=== PATIENT | female | born 1995 | race Caucasian/White ===

== ENCOUNTER 2017-05-17 15:21 | Outpatient (CLI) | payer OTHER, SELFPAY ==
[~2017-05-17] VITALS: Ht 160 cm; Wt 76.0 kg
[2017-05-17] MEDS ORDERED: PRENTAB9 PO (15:48)
[2017-05-17] MEDS ORDERED: ACET50TA PO (15:48)
[2017-05-17 15:51] VITALS: BP 106/50
[2017-05-17 17:41] VITALS: BP 107/61
[2017-06-06] MEDS ORDERED: RANI150T PO (12:55)
== END 2017-05-17 18:07 | disposition home or self-care (01) ==
LOC: M LDO 15:21
PROVIDERS: ATTEND Obstetrics & Gynecology
DX: O99.89 Other specified diseases and conditions complicating pregnancy, childbirth and the puerperium (principal); W19.XXXA Unspecified fall, initial encounter; Z3A.34 34 weeks gestation of pregnancy; Z88.5 Allergy status to narcotic agent; X58.XXXA Exposure to other specified factors, initial encounter; Y93.9 Activity, unspecified; Y92.9 Unspecified place or not applicable; Y99.8 Other external cause status; R10.12 Left upper quadrant pain; R10.32 Left lower quadrant pain

== ENCOUNTER 2017-06-15 07:07 | Inpatient (IN) | payer OTHER ==
[~2017-06-15] VITALS: Ht 160 cm; Wt 75.4 kg
[~2017-06-15 07:07] MED LIST: ACET50TA PO; PRENTAB9 PO; RANI150T PO
[2017-06-15] MEDS ORDERED: LR 1,000 ML IV ONE (08:00)
[2017-06-15] MEDS ORDERED: BICITRA 30ML SOLN UDC PO ONE (08:00)
[2017-06-15] MEDS ORDERED: LR 1,000 ML IV SCH ×2 (08:00→12:45)
[2017-06-15 08:22] LABS: MEAN CORPUSCULAR HGB CONC 33.7 g/dl (32.0-36.5); MEAN CORPUSCULAR VOLUME 88.9 fl (80.0-96.0); PLATELET COUNT, AUTOMATED 198 10^3/uL (150-450); RED CELL DISTRIBUTION WIDTH 12.4 % (11.5-14.5); WHITE BLOOD COUNT 7.6 10^3/uL (4.0-10.0)
[2017-06-15 10:18] VITALS: BP 130/76
[2017-06-15] MEDS ORDERED: ePHEDrine SULFATE 25 MG/5 ML(5MG/ML) SYRINGE As Ordered ONE (10:53)
[2017-06-15] MEDS ORDERED: MORPHINE PRES-FREE INJ 10 MG/10 ML VIAL (J2274) As Ordered ONE (10:53)
[2017-06-15] MEDS ORDERED: OXYTOCIN INJ 10 UNITS/ML VIAL (J2590) As Ordered ONE (10:53)
[2017-06-15] MEDS ORDERED: ONDANSETRON 4MG/2ML VIAL (J2405) As Ordered ONE (10:53)
[2017-06-15] MEDS ORDERED: KETOROLAC 60 MG/2 ML VIAL (J1885) As Ordered ONE (11:11)
[2017-06-15] MEDS ORDERED: METOCLOPRAMIDE INJ 10MG/2ML VIAL (J2765) As Ordered ONE (11:15)
[2017-06-15] MEDS ORDERED: dexameTHASONE 4 MG/ML 1ML VIAL (J1100) As Ordered ONE (11:27)
[2017-06-15] MEDS: LR 1,000 ML IV SCH ×2 (12:13→20:13)
[2017-06-15] MEDS ORDERED: MOM 30ML SUSPENSION UDC PO PRN (12:15)
[2017-06-15] MEDS ORDERED: PROMETHAZINE 25 MG TAB PO PRN (12:15)
[2017-06-15] MEDS ORDERED: RHOGAM 300 MCG (1500 IU) INJ (J2790) IM SCH (12:15)
[2017-06-15] MEDS ORDERED: METHYLERGONOVINE MALEATE 0.2 MG TAB PO PRN (12:15)
[2017-06-15] MEDS ORDERED: DOCUSATE SODIUM 100 MG CAP PO PRN (12:15)
[2017-06-15] MEDS ORDERED: PERCOCET 5MG/325MG TAB PO PRN ×2 (12:15→12:45)
[2017-06-15] MEDS ORDERED: MEASLES,MUMPS,RUBELLA VACCINE INJ (MMR-II) (90707) SC SCH (12:15)
[2017-06-15] MEDS ORDERED: ONDANSETRON 4MG/2ML VIAL (J2405) IV PRN ×2 (12:15→12:45)
[2017-06-15] MEDS ORDERED: fentaNYL 100 MCG/2 ML INJECTION (J3010) IV PRN (12:45)
[2017-06-15] MEDS ORDERED: NALBUPHINE HCL 10 MG/ML AMP (J2300) IV PRN (12:45)
[2017-06-15 13:32] VITALS: BP 129/60
[2017-06-15] MEDS: PRENATAL VITAMINS CHEWABLE TABLET PO SCH (14:09)
[2017-06-15 14:10] VITALS: BP 114/66
[2017-06-15 15:16] VITALS: BP 111/57
[2017-06-15] MEDS: KETOROLAC 30 MG/ML VIAL (J1885) IV SCH ×2 (17:17→23:18)
[2017-06-15 18:14] VITALS: BP 112/58
[2017-06-15 22:00] VITALS: BP 108/62
[2017-06-16 02:00] VITALS: BP 105/50
[2017-06-16] MEDS: LR 1,000 ML IV SCH (04:13)
[2017-06-16] MEDS: KETOROLAC 30 MG/ML VIAL (J1885) IV SCH ×2 (05:28→10:40)
[2017-06-16 06:00] VITALS: BP 97/51
[2017-06-16 07:27] LABS: MEAN CORPUSCULAR HGB CONC 33.3 g/dl (32.0-36.5); PLATELET COUNT, AUTOMATED 152 10^3/uL (150-450); RED CELL DISTRIBUTION WIDTH 12.5 % (11.5-14.5); WHITE BLOOD COUNT 13.7 10^3/uL (4.0-10.0)
[2017-06-16] MEDS: PRENATAL VITAMINS CHEWABLE TABLET PO SCH (08:26)
[2017-06-16 10:10] VITALS: BP 99/52
[2017-06-16 14:11] VITALS: BP 127/64
[2017-06-16] MEDS: PERCOCET 5MG/325MG TAB PO PRN (17:48)
[2017-06-16 18:04] VITALS: BP 117/60
[2017-06-16] MEDS: IBUPROFEN 800 MG TAB PO SCH (19:00)
[2017-06-16 22:00] VITALS: BP 119/64
--- NOTE | 2017-06-16 22:40 | RO ---
DATE OF PROCEDURE: 06/15/2017 PREPROCEDURE DIAGNOSIS: 1) Term 2) Previous /desired repeated low transverse section 3) Satisfied parity POSTPROCEDURE DIAGNOSIS: 1) Term 2) Previous /desired repeated low transverse section 3) Satisfied parity PROCEDURE: RLTCS and BTL SURGEON: Dr. Rito Villa SAFETY COORDINATOR: Dr. Hernan Ellis ANESTHESIA: Sonido, WELLNESS GUIDE - Spinal The patient is a 21-year-old 3, para 3 now, presents this day for repeat low transverse section with two previous sections, as well as satisfied parity. Previously counseled the patient on multiple occasions, the patient's desire for tubal ligation due to satisfied parity. The patient and spouse have written a letter to this provider, which will be scanned into [facility] medical records in regards to desire for permanent sterilization, understanding that this is a permanent procedure. The risks/benefits/alternatives/indications reviewed with the patient, informed consent was obtained. DESCRIPTION OF PROCEDURE: The patient was taken to the operating room where spinal anesthesia was attained without difficulty. She was then prepped and draped in the normal sterile fashion in dorsal supine position with a left lateral tilt. A Pfannenstiel skin incision was made along the previous incisions and carried through to the underlying layer of fascia. The fascia was incised in the midline, the incision extended laterally with Phillip scissors. The superior aspect of the fascial incision was grasped with Jatin clamps, elevated and the underlying rectus muscle dissected off bluntly aided by Phillip scissors and Bovie. Attention was then turned to the inferior aspect of the incision, which in a similar fashion was grasped with Jatin clamps and the underlying rectus muscle was dissected off bluntly, as well as with Phillip scissors. Rectus muscles then in the midline and peritoneum was identified, entered digitally and extended laterally. Scar tissue was carefully dissected down from the peritoneum with the assistance of mosquito clamps and Bovie cautery. After good visualization of bladder was obtained, a bladder blade was placed into the abdomen in a routine fashion. Vesicouterine peritoneum was identified and found to be well inferior of the pending hysterotomy site. Vesicouterine peritoneum was identified, tented up, grasped with the pickups and entered sharply with Metzenbaum scissors and extended laterally. A bladder flap was thus created, and bladder blade was reintroduced over this bladder flap. Next, the lower uterine segment was incised in a transverse fashion with a scalpel and extended in a superior-inferior direction. The membranes were ruptured, productive of clear fluid. The infant was found to be in a cephalic presentation and delivered through the hysterotomy without complication. Cord was doubly clamped and cut. Infant was handed off to awaiting pediatric nurses. Cord blood was obtained at this time. Placenta was removed with gentle traction on the umbilical cord manually. Uterus exteriorized and cleared of all clots and debris. Bladder blade was introduced again and the uterine incision was repaired with #0 Monocryl in a running locked fashion, a second layer of #0 Monocryl was used for imbrication. Two further edayle-oh-hdxgd stitches were needed at the left aspect of the hysterotomy for hemostasis. Evaluation of the pelvis demonstrated normal appearing uterus, bilateral fallopian tube and ovaries. At this time, after hemostasis was obtained and irrigation performed in the posterior cul-de-sac, the bilateral fallopian tubes were identified and followed up to its fimbriated end. Then, at the mid aspect of the fallopian tubes, the mesosalpinx was incised with a Bovie cautery and two #0 chromic stitches were placed around the fallopian tube and were tied in appropriate fashion. Approximately 2.5 cm of fallopian tube were then excised between the ties with Metzenbaum scissors. The ends were then Bovie cauterized. Excellent hemostasis and telescoping of tubal lumen was noted with small need for a running stitch at the mesosalpinx. The exact same procedures were performed on the opposite side, the first side being the left, the second side being the right. After this was performed, both fallopian tube segments were removed in a routine fashion and sent down for pathological analysis. Excellent hemostasis was noted again at this time. Uterus was then returned to the patient's abdomen and close visualization of surgical sites noted hemostasis. Daiana was placed both over this site, as well as over the rectus muscle. The fascia was then closed in a running fashion. The subcutaneous tissue was then closed in two layers with single interrupted sutures of #3-0 Vicryl. #4-0 Monocryl was then used for subcuticular closure of the skin. Steri-Strips and a pressure dressing were applied in a routine fashion. At completion of the case, bimanual exam was performed with good uterine tone. Needle, sponge and lap counts correct times three. Ancef was supplied prior to skin incision. Ernst Villa OB-[employer]ANDRED
[2017-06-17] MEDS: PERCOCET 5MG/325MG TAB PO PRN ×2 (01:25→08:36)
[2017-06-17] MEDS: IBUPROFEN 800 MG TAB PO SCH (03:48)
[2017-06-17] MEDS ORDERED: IBUP-1114 PO (08:34)
[2017-06-17] MEDS ORDERED: OXYC1TAB23 PO ×2 (08:34→08:36)
[2017-06-17] MEDS ORDERED: COLA100C5 PO (08:36)
[2017-06-17] MEDS: PRENATAL VITAMINS CHEWABLE TABLET PO SCH (08:36)
== END 2017-06-17 11:00 | disposition home or self-care (01) | DRG 766 ==
LOC: M LDI 07:07 → M OBS 13:31
PROVIDERS: ADMIT Student in an Organized Health Care Education/Training Program; ATTEND Student in an Organized Health Care Education/Training Program
PROC: 0UB70ZZ Excision of Bilateral Fallopian Tubes, Open Approach (ICD-10-PCS; 2017-06-15)
PROC: 10D00Z1 Extraction of Products of Conception, Low, Open Approach (ICD-10-PCS; principal; 2017-06-15 09:30)
DX: O34.211 Maternal care for low transverse scar from previous cesarean delivery (principal); Z30.2 Encounter for sterilization; Z37.0 Single live birth; Z3A.37 37 weeks gestation of pregnancy

== ENCOUNTER 2018-01-16 12:29 | Emergency (ER) | payer OTHER ==
[2018-01-16 15:43] LABS: BASO % 0.3 % (0.0-1.0); EOS # 0.2 10^3/uL (0.0-0.50); EOS % 3.2 % (0.0-3.0); HEMATOCRIT 36.7 % (36.0-47.0); IMMATURE GRANULOCYTE % 0.3 % (0-3.0); LYMPH # 2.8 10^3/uL (1.5-6.5); LYMPH % 42.9 % (24.0-44.0); MEAN CORPUSCULAR HGB CONC 32.7 g/dl (32.0-36.5); MEAN CORPUSCULAR VOLUME 88.6 fl (80.0-96.0); MONO # 0.4 10^3/uL (0.0-0.8); MONO % 6.6 % (0.0-5.0); NEUTROPHILS # 3.1 10^3/uL (1.8-7.7); NEUTROPHILS % 46.7 % (36.0-66.0); PLATELET COUNT, AUTOMATED 218 10^3/uL (150-450); RED BLOOD COUNT 4.14 10^6/uL (4.00-5.40); RED CELL DISTRIBUTION WIDTH 12.9 % (11.5-14.5); WHITE BLOOD COUNT 6.5 10^3/uL (4.0-10.0)
[2018-01-16 16:03] LABS: CONTROL LINE HCG INT CTR LINE PRESENT; HCG, SERUM QUALITATIVE NEGATIVE (NEGATIVE)
== END 2018-01-16 16:35 | disposition left against medical advice (07) ==
LOC: M ED 12:29
DX: N93.9 Abnormal uterine and vaginal bleeding, unspecified (principal); Z53.21 Procedure and treatment not carried out due to patient leaving prior to being seen by health care provider

== ENCOUNTER → 2018-03-26 | Outpatient (REF) | payer OTHER | LOC: M LAB REF 17:33 | DX: Z12.4 Encounter for screening for malignant neoplasm of cervix (principal) ==

== ENCOUNTER → 2018-04-26 | Outpatient (CLI) | payer OTHER | LOC: M LRY 13:28 | DX: R10.2 Pelvic and perineal pain (principal); N92.0 Excessive and frequent menstruation with regular cycle; N83.202 Unspecified ovarian cyst, left side; N85.4 Malposition of uterus | CPT/HCPCS: 76830 ==

== ENCOUNTER → 2018-12-03 | Outpatient (REF) | payer OTHER ==
[~2018-12-03] MED LIST changes: -ACET50TA PO; +BIRTH CONTROL PILL PO; +COLA100C5 PO; +IBUP-1114 PO; +MAPA500T2 PO; +OXYC1TAB23 PO
[2018-12-03 20:07] LABS: CHLAMYDIA DNA AMPLIFICATION NEGATIVE (NEGATIVE); GC DNA AMPLIFICATION NEGATIVE (NEGATIVE)
== END ==
LOC: M SFHCLERA 13:04
PROVIDERS: ATTEND Nurse Practitioner Family
DX: Z11.3 Encounter for screening for infections with a predominantly sexual mode of transmission (principal)
CPT/HCPCS: 81002; 81025; 87086; 87661; 87804; G0463